=== PATIENT | female | born 1960 | race Caucasian/White ===

== ENCOUNTER 2017-03-10 16:58 | Emergency (ER) | payer MEDICAID, OTHER ==
[~2017-03-10] VITALS: Ht 175.3 cm; Wt 75.9 kg
[2017-03-10 18:28] VITALS: BP 130/92
--- NOTE | 2017-03-10 21:30 | NUR ---
PATIENT CALLED TO PUT ON BED NO RESPONSE, NO RESPONSE
--- NOTE | 2017-03-10 21:35 | NUR ---
CALLED FOR THE SECOND TIME NO RESPONSE.
--- NOTE | 2017-03-10 21:42 | NUR ---
PATIENT CALLED FOR THIRD TIME NO ANSWER, PATIENT LEFT WITHOUT BEING SEEN BY DR. SÁNCHEZ. NO FURTHER CARE PROVIDED FOR PATIENT.
== END 2017-03-10 21:42 | disposition left against medical advice (07) ==
LOC: MED 16:58
DX: R07.89 Other chest pain (principal); H92.02 Otalgia, left ear; R51 Headache; R05 Cough; Z53.21 Procedure and treatment not carried out due to patient leaving prior to being seen by health care provider

== ENCOUNTER 2017-03-11 14:03 | Emergency (ER) | payer OTHER ==
[~2017-03-11] VITALS: Ht 175.3 cm; Wt 72.6 kg
[2017-03-11 14:26] VITALS: BP 132/69
[2017-03-11 14:36] VITALS: BP 132/69
--- NOTE | 2017-03-11 17:59 | NUR ---
Patient ambulated to [facility]. RN evaluating patient.
--- NOTE | 2017-03-11 18:05 | NUR ---
PATIENT PRESENTS TO ED WITH c/o right shoulder/scapula sharp pain radiated to anterior right side x yesterday denies injury/trauma hx--thyroid, anxiety rx--levothyroxine; DENIES N/V/D; SKIN IS PINK/WARM/DRY; AAOX4 WITH EVEN AND STEADY GAIT; LUNGS CLEAR BL; HR EVEN AND REGULAR; PT DENIES ANY FEVER, CP OR SOB AT THIS TIME; PATIENT STATES PAIN OF 0/10 AT THIS TIME; VSS; PATIENT POSITIONED FOR COMFORT; ER MD MADE AWARE OF PT STATUS.
--- NOTE | 2017-03-11 18:18 | NUR ---
DR ZAMORA EVALUATING [facility] PT
[2017-03-11 21:23] LABS: BASOPHILS # (AUTO) 0.3 K/uL (0.00-0.22); EOSINOPHILS # (AUTO) 0.1 K/uL (0-0.4); HEMATOCRIT 42.7 % (36-48); HEMOGLOBIN 14.1 g/dL (12.0-16.0); LYMPHOCYTES # (AUTO) 1.6 K/uL (2.5-16.5); MEAN CORPUSCULAR HEMOGLOBIN 28 pg (27-31); MEAN CORPUSCULAR HGB CONC 33 g/dL (33-37); MEAN CORPUSCULAR VOLUME 84 fL (80-94); MONOCYTES # (AUTO) 0.6 K/uL (0.8-1.0); NEUTROPHILS # (AUTO) 1.7 K/uL (1.8-7.7); PLATELET COUNT (AUTO) 161 K/uL (140-450); RED BLOOD CELL COUNT(AUTO) 5.11 MIL/uL (4.20-5.40); RED CELL DISTRIBUTION WIDTH 13.3 % (11.6-13.7); WHITE BLOOD COUNT (AUTO) 4.3 K/uL (4.8-10.8)
[2017-03-11 21:31] LABS: ANION GAP 13.1 (8-16); CARBON DIOXIDE 27.2 mmol/L (21-32); CREATININE 0.9 mg/dL (0.6-1.3); POTASSIUM 3.3 mmol/L (3.5-5.1)
[2017-03-11 21:38] LABS: ALBUMIN 3.8 g/dL (3.4-5.0); TOTAL BILIRUBIN 0.3 mg/dL (0.0-1.0)
--- NOTE | 2017-03-11 21:55 | NUR ---
Patient appears to be resting comfortably in bed. Vital Signs within normal limits. Respirations even and unlabored.
--- NOTE | 2017-03-11 21:55 | NUR ---
UA DONE, HCG NEG
--- NOTE | 2017-03-11 22:10 | NUR ---
Patient discharged with v/s stable. Written and verbal after care instructions given and explained. Patient alert, oriented and verbalized understanding of instructions. Ambulatory with steady gait. All questions addressed prior to discharge. ID band removed. Patient advised to follow up with PMD. Rx of MODESTO SANTOS AND JAMES given. Patient educated on indication of medication including possible reaction and side effects. Opportunity to ask questions provided and answered.
[2017-03-11 22:54] LABS: APPEARANCE,URINE CLEAR (CLEAR); BILIRUBIN,URINE NEGATIVE (NEGATIVE); BLOOD, URINE TRACE-I (NEGATIVE); COLOR,URINE YELLOW (YELLOW); LEUKOCYTE ESTERASE ,URINE NEGATIVE (NEGATIVE); NITRITE, URINE NEGATIVE (NEGATIVE); UGLUCOSE NEGATIVE (NEGATIVE)
[2017-03-11 23:23] LABS: RBC,URINE 0-5 (RARE) /HPF (0-5); WBC,URINE 0-5 (RARE) /HPF (0-5)
== END 2017-03-11 22:10 | disposition home or self-care (01) ==
LOC: MED 14:03
DX: J11.1 Influenza due to unidentified influenza virus with other respiratory manifestations (principal)
CPT/HCPCS: 36415; 71045; 80053; 81001; 81025; 83690; 84484; 85025; 85379; 93005; 99285; Q0092

== ENCOUNTER 2022-01-30 11:28 | Emergency (ER) | payer OTHER ==
[~2022-01-30] VITALS: Ht 167.6 cm; Wt 77.1 kg
[2022-01-30 11:38] VITALS: BP 118/69
--- NOTE | 2022-01-30 11:47 | NUR ---
PT SWABBED SPECIMEN WALKED TO LAB
[2022-01-30] MEDS ORDERED: IBUP-2213 PO (13:50)
[2022-01-30] MEDS ORDERED: PROM118S5 PO (13:50)
[2022-01-30] MEDS ORDERED: ONDA-188 SL (13:50)
--- NOTE | 2022-01-30 14:04 | NUR ---
Patient discharged with v/s stable. Written and verbal after care instructions given and explained. Patient alert, oriented and verbalized understanding of instructions. Ambulatory with steady gait. All questions addressed prior to discharge. ID band removed. Patient advised to follow up with PMD. Rx of INFLUENZA, ABD PAIN, VIRAL ILLNESS given. Patient educated on indication of medication including possible reaction and side effects. Opportunity to ask questions provided and answered.
== END 2022-01-30 14:04 | disposition home or self-care (01) ==
LOC: MED 11:28
DX: J10.1 Influenza due to other identified influenza virus with other respiratory manifestations (principal); Z20.822 Contact with and (suspected) exposure to COVID-19; E03.9 Hypothyroidism, unspecified
CPT/HCPCS: 81002; 99283